=== PATIENT | female | born 1940 | race Two or more races ===

== ENCOUNTER 2017-12-19 08:06 | Emergency (ER) | payer MEDICARE ==
[~2017-12-19] VITALS: Ht 157.5 cm; Wt 91.6 kg
[~2017-12-19 08:06] MED LIST: ASPI81TA27 PO; LEV50T PO; LOSA50TA6 PO
[2017-12-19 08:59] VITALS: BP 167/70
[2017-12-19] MEDS ORDERED: KETOROLAC TROMETH 60MG/2ML VIAL IM ONE (09:15)
== END 2017-12-19 09:54 | disposition home or self-care (01) ==
LOC: ER 08:06
DX: M43.6 Torticollis (principal); R51 Headache; I10 Essential (primary) hypertension; E07.9 Disorder of thyroid, unspecified; R42 Dizziness and giddiness
CPT/HCPCS: 70450; 81002; 96372; 99284; J1885

== ENCOUNTER 2024-03-04 15:19 | Inpatient (IN) | payer MEDICARE, OTHER ==
[~2024-03-04] VITALS: Ht 154.9 cm; Wt 91.0 kg
[~2024-03-04 15:19] MED LIST changes: +ASPI-543 PO; -ASPI81TA27 PO; +LOSA-534 PO; -LOSA50TA6 PO
[2024-03-04 16:49] LABS: Basophils # (auto) 0 10 ^3/uL (0-0.2)
[2024-03-04 16:51] LABS: Basophils % (auto) 0.2 % (0.0-2.0); Eosinophils # (auto) 0.4 10 ^3/uL (0-0.8); Eosinophils % (auto) 3.2 % (0.0-7.0); Lymphocytes # (auto) 1.9 10 ^3/uL (0.4-5.4); Lymphocytes % (auto) 14.5 % (10.0-50.0); Mean Corpuscular Hgb Conc. 34.4 g/dL (32.0-36.0); Mean Corpuscular Volume 104.6 fL (80.0-100.0); Monocytes # (auto) 2.2 10 ^3/uL (0-1.3); Neutrophils # (auto) 8.4 10 ^3/uL (1.6-8.6); Neutrophils % (auto) 65.1 % (37.0-80.0); Nucleated Red Blood Cells % 0.1 %; Red Blood Cells 3.35 10^6/uL (4.0-5.20); Red Cell Distribution Width 14.6 % (11.8-14.3); White Blood Cell 12.9 10^3/uL (4.4-10.8)
[2024-03-04 17:01] LABS: Alanine Aminotransferase 96 U/L (7-40); Albumin 2.4 g/dL (3.2-4.8); Alkaline Phosphatase 252 U/L (46-116); Anion Gap 6 (5-15); Aspartate Aminotransferase 145 U/L (13-40); BUN/Creatinine Ratio 51.8 (10.0-20.0); Blood Urea Nitrogen 71 mg/dL (9-23); Carbon Dioxide 23 mmol/L (20-30); Chloride 102 mmol/L (98-107); Glucose 77 mg/dL (74-106); Sodium 131 mmol/L (136-145)
[2024-03-04 17:02] LABS: Bilirubin, Total 8.3 mg/dL (0.2-1.0); Total Protein 6.5 g/dL (5.7-8.2)
[2024-03-04 18:01] VITALS: PULSE 81; RESP 21; O2SAT 100
[2024-03-04] MEDS: ALBUTEROL SULF 2.5 MG/0.5ML(0.5%) NEB SOLN NEB ONE (18:30)
[2024-03-04] MEDS: ALBUTEROL SULF 2.5 MG/0.5ML(0.5%) NEB SOLN ONE (18:53)
[2024-03-04 19:35] VITALS: PULSE 93; RESP 11; O2SAT 94
[2024-03-04 19:52] LABS: Urine Bacteria FEW /hpf (None Seen); Urine Blood 2+ /uL (Negative); Urine Clarity Clear (Clear); Urine Color Yellow (Yellow); Urine Hyaline Cast FEW /lpf (0 - 2); Urine Protein, UAD Negative (Negative); Urine Specific Gravity 1.011 (1.001-1.035); Urine Urobilinogen 2 mg/dL (Negative); Urine WBC 2 /hpf (0 - 5); Urine pH 5.5 (5.0-9.0)
[2024-03-04] MEDS: SODIUM BICARB 8.4% 50Meq/50ml SYR INJ IV ONE (20:24)
[2024-03-04] MEDS: DEXTROSE (50%) 50ML SYRG IV ONE (20:25)
[2024-03-04] MEDS: CALCIUM CHL 100MG/ML 500 MG in D5W 5% 100 ML IV ONE (20:34)
[2024-03-04] MEDS: SODIUM CHLORIDE 0.9% 1,000 ML IV ONE ×3 (20:39→23:45)
[2024-03-04] MEDS: cefTRIAXone 1GM/50ML D5W 50 ML IV ONE (22:45)
[2024-03-04 23:29] LABS: Lactic Acid w/Reflex 4.2 mmol/L (0.4-2.0)
[2024-03-04 23:35] LABS: COVID19 ANTIGEN SOFIA FIA NEGATIVE (NEGATIVE)
[2024-03-04] MEDS: VANCOMYCIN 1GM/200ML 200 ML IV ONE (23:39)
[2024-03-05] MEDS: DEXTROSE (50%) 50ML SYRG IV ONE (00:54)
[2024-03-05] MEDS: NOREPINEPHRINE 8 MG/250ML KIT 250 ML IV SCH (03:00)
[2024-03-05] MEDS ORDERED: ONDANSETRON HCL 4 MG/2 ML VIAL IV PRN (03:15)
[2024-03-05] MEDS ORDERED: MORPHINE SULFATE INJ 2 MG/ml SYRG IV PRN (03:15)
[2024-03-05] MEDS ORDERED: NITROGLYCERIN 0.4 MG SL TAB SL PRN (03:15)
[2024-03-05 03:28] VITALS: BP 99/31; PULSE 90; RESP 19; TEMP 97.8; O2SAT 94
[2024-03-05] MEDS ORDERED: ALBUTEROL SULF 2.5 MG/0.5ML(0.5%) NEB SOLN NEB PRN (03:30)
[2024-03-05] MEDS: LACTULOSE 20Gm/30ML SOLN PO ONE (03:36)
[2024-03-05] MEDS: ALBUMIN 5% 250 ML IV ONE (03:36)
[2024-03-05] MEDS: AZITHROMYCIN 500MG/ 250ML 250 ML IV SCH (04:29)
[2024-03-05 05:39] LABS: Basophils # (auto) 0 10 ^3/uL (0-0.2); Hemoglobin 11.6 g/dL (12.2-16.2); Lymphocytes # (auto) 1.6 10 ^3/uL (0.4-5.4); Mean Corpuscular Volume 106.1 fL (80.0-100.0); Monocytes # (auto) 2.8 10 ^3/uL (0-1.3); Monocytes % (auto) 16.7 % (0.0-12.0); Red Cell Distribution Width 15.2 % (11.8-14.3)
[2024-03-05 05:45] LABS: Basophils % (auto) 0.3 % (0.0-2.0); Eosinophils # (auto) 0.3 10 ^3/uL (0-0.8); Eosinophils % (auto) 1.6 % (0.0-7.0); Hematocrit 33.5 % (36.0-46.0); Lymphocytes % (auto) 9.6 % (10.0-50.0); Mean Corpuscular Hemoglobin 36.6 pg (28.0-32.0); Mean Corpuscular Hgb Conc. 34.5 g/dL (32.0-36.0); Neutrophils % (auto) 71.8 % (37.0-80.0); Red Blood Cells 3.16 10^6/uL (4.0-5.20); White Blood Cell 16.6 10^3/uL (4.4-10.8)
[2024-03-05 05:53] LABS: Alanine Aminotransferase 84 U/L (7-40); Albumin 2.8 g/dL (3.2-4.8); Alkaline Phosphatase 247 U/L (46-116); Anion Gap 10 (5-15); Aspartate Aminotransferase 110 U/L (13-40); BUN/Creatinine Ratio 31.9 (10.0-20.0); Bilirubin, Total 7.2 mg/dL (0.2-1.0); Blood Urea Nitrogen 46 mg/dL (9-23); Calcium 11.2 mg/dL (8.5-10.1); Carbon Dioxide 21 mmol/L (20-30); Chloride 103 mmol/L (98-107); Glucose 118 mg/dL (74-106); Sodium 134 mmol/L (136-145)
[2024-03-05 06:15] VITALS: O2SAT 98
[2024-03-05 08:25] VITALS: PULSE 74; RESP 17; O2SAT 99
[2024-03-05] MEDS: SODIUM CHLORIDE 0.9% 1,000 ML IV SCH ×2 (11:11→13:45)
[2024-03-05] MEDS: MEROPENEM 1GM IVPB 50 ML IV ONE (11:30)
[2024-03-05] MEDS ORDERED: VANCOMYCIN PER PHARMACY 0 MG IV SCH (11:30)
[2024-03-05 11:51] LABS: Protein, Urine 18.2 mg/dL (0.0-11.9)
[2024-03-05 11:53] LABS: Creatinine, Urine 70.68 mg/dL (30.0-125.0)
[2024-03-05 12:16] LABS: Amphetamine Screen, Urine Neg (NEGATIVE); Barbiturate Scree,Urine Neg (NEGATIVE); Benzodiazephine Screen, Urine Neg (NEGATIVE); Cannabinoid Screen, Urine Neg (NEGATIVE); Cocaine Screen, Urine Neg (NEGATIVE); Opiate Scree,Urine Neg (NEGATIVE); Phencyclidine Screen, Urine Neg (NEGATIVE)
[2024-03-05 12:17] LABS: Base Excess -1.7 mmol/L (-2.0-2.0)
[2024-03-05 12:17] LABS: Magnesium 1.8 mg/dL (1.6-2.6)
[2024-03-05 12:18] LABS: Phosphorus 3.9 mg/dL (2.4-5.1)
[2024-03-05 12:57] LABS: Free T3 2.02 pg/mL (2.3-4.2); Free T4 (Free Thyroxine) 1.23 ng/dL (0.89-1.76)
[2024-03-05] MEDS: OCTREOTIDE ACETATE 100 MCG/ML VL SUBCUT SCH (14:00)
[2024-03-05 14:12] LABS: COVID19 ANTIGEN SOFIA FIA NEGATIVE (NEGATIVE)
[2024-03-05 14:13] LABS: Rapid Influenza A Negative (Negative); Rapid Influenza B Negative (Negative)
[2024-03-05 14:22] LABS: INR 1.35 (0.9-1.15); Partial Thromboplastin Time 28.5 SEC (24.5-34.5)
[2024-03-05 14:29] VITALS: PULSE 80; RESP 20; O2SAT 97
[2024-03-05] MEDS: PANTOPRAZOLE 40 MG/10 ML VIAL INJ IV ONE (14:40)
[2024-03-05] MEDS: ENOXAPARIN SOD 40 MG/0.4 ML SYRINGE SC ONE (14:43)
[2024-03-05 14:59] LABS: Lactic Acid w/Reflex 2.5 mmol/L (0.4-2.0)
[2024-03-05] MEDS: VANCOMYCIN 1GM/200ML 200 ML IV ONE (16:02)
[2024-03-05 19:30] VITALS: PULSE 78; RESP 14; O2SAT 96
[2024-03-05 20:07] VITALS: O2SAT 98
[2024-03-05] MEDS: MEROPENEM 1GM IVPB 50 ML IV SCH (21:00)
[2024-03-05] MEDS ORDERED: cefTRIAXone 1GM/50ML D5W 50 ML IV SCH (21:00)
[2024-03-05] MEDS: LACTULOSE 20Gm/30ML SOLN PO SCH (22:50)
[2024-03-06 03:21] LABS: Basophils # (auto) 0 10 ^3/uL (0-0.2); Basophils % (auto) 0.2 % (0.0-2.0); Eosinophils # (auto) 0.9 10 ^3/uL (0-0.8); Eosinophils % (auto) 4.7 % (0.0-7.0); Hematocrit 32.3 % (36.0-46.0); Hemoglobin 11.1 g/dL (12.2-16.2); Lymphocytes # (auto) 2.7 10 ^3/uL (0.4-5.4); Mean Corpuscular Hemoglobin 36.3 pg (28.0-32.0); Mean Corpuscular Hgb Conc. 34.2 g/dL (32.0-36.0); Mean Corpuscular Volume 106.1 fL (80.0-100.0); Monocytes # (auto) 3.5 10 ^3/uL (0-1.3); Monocytes % (auto) 17.9 % (0.0-12.0); Neutrophils # (auto) 12.2 10 ^3/uL (1.6-8.6); Neutrophils % (auto) 63.2 % (37.0-80.0); Red Blood Cells 3.04 10^6/uL (4.0-5.20); Red Cell Distribution Width 15.1 % (11.8-14.3); White Blood Cell 19.4 10^3/uL (4.4-10.8)
[2024-03-06 03:30] LABS: Alanine Aminotransferase 66 U/L (7-40); Albumin 2.4 g/dL (3.2-4.8); Alkaline Phosphatase 205 U/L (46-116); Anion Gap 4 (5-15); Aspartate Aminotransferase 79 U/L (13-40); BUN/Creatinine Ratio 34.8 (10.0-20.0); Blood Urea Nitrogen 39 mg/dL (9-23); Calcium 10.1 mg/dL (8.7-10.4); Carbon Dioxide 23 mmol/L (20-30); Chloride 108 mmol/L (98-107); Glucose 108 mg/dL (74-106); Magnesium 1.7 mg/dL (1.6-2.6); Sodium 135 mmol/L (136-145)
[2024-03-06 03:31] LABS: Bilirubin, Total 7.5 mg/dL (0.2-1.0); Total Protein 6.2 g/dL (5.7-8.2)
[2024-03-06 03:40] LABS: Potassium 5.6 mmol/L (3.5-5.1)
[2024-03-06 08:30] VITALS: PULSE 81; RESP 13; O2SAT 96
[2024-03-06 09:10] LABS: Hepatitis B Surface Antigen Negative (Negative)
[2024-03-06 09:31] LABS: Hepatitis C Antibody Negative (Negative)
[2024-03-06 10:11] VITALS: PULSE 84; RESP 16; O2SAT 97
[2024-03-06] MEDS: ALBUTEROL SULF 2.5 MG/0.5ML(0.5%) NEB SOLN NEB ONE (10:16)
[2024-03-06] MEDS: ALBUTEROL SULF 2.5 MG/0.5ML(0.5%) NEB SOLN ONE (10:17)
[2024-03-06 10:20] VITALS: PULSE 84; RESP 16; O2SAT 100
[2024-03-06] MEDS: DEXTROSE (50%) 50ML SYRG IV ONE (10:50)
[2024-03-06] MEDS: SODIUM BICARB 8.4% 50Meq/50ml SYR INJ IV ONE (10:51)
[2024-03-06] MEDS: PANTOPRAZOLE 40 MG/10 ML VIAL INJ IV SCH (10:51)
[2024-03-06] MEDS: ENOXAPARIN SOD 40 MG/0.4 ML SYRINGE SC SCH (10:52)
[2024-03-06] MEDS: InsuLIN REG 1unit/0.01ml Soln (100units/ml) IV ONE (10:53)
[2024-03-06] MEDS: VASOPRESSIN 20 UNITS in SODIUM CHL 0.9% 99 ML IV SCH (12:12)
[2024-03-06] MEDS: VANCOMYCIN 1GM/200ML 200 ML IV ONE (13:02)
[2024-03-06] MEDS ORDERED: LEVO100T8 PO (15:08)
[2024-03-06] MEDS ORDERED: CEPH500C PO (15:12)
[2024-03-06] MEDS ORDERED: AZIT500T66 PO (15:12)
[2024-03-06] MEDS ORDERED: SPIR50TA5 PO (15:12)
[2024-03-06] MEDS: FUROSEMIDE 40 MG/4 ML VIAL IV SCH (15:30)
[2024-03-06 18:56] VITALS: O2SAT 97
[2024-03-07] MEDS: NOREPINEPHRINE 8 MG/250ML KIT 250 ML IV ONE (01:37)
[2024-03-07 03:49] LABS: Eosinophils # (auto) 0.9 10 ^3/uL (0-0.8); Hemoglobin 9.9 g/dL (12.2-16.2); Red Blood Cells 2.74 10^6/uL (4.0-5.20)
[2024-03-07 03:50] LABS: Basophils # (auto) 0.1 10 ^3/uL (0-0.2); Basophils % (auto) 0.3 % (0.0-2.0); Hematocrit 29.6 % (36.0-46.0); Lymphocytes # (auto) 2.1 10 ^3/uL (0.4-5.4); Mean Corpuscular Hemoglobin 36.1 pg (28.0-32.0); Mean Corpuscular Hgb Conc. 33.5 g/dL (32.0-36.0); Mean Corpuscular Volume 107.8 fL (80.0-100.0); Monocytes # (auto) 2.7 10 ^3/uL (0-1.3); Monocytes % (auto) 17.2 % (0.0-12.0); Neutrophils % (auto) 63.5 % (37.0-80.0); Red Cell Distribution Width 15.3 % (11.8-14.3); White Blood Cell 15.8 10^3/uL (4.4-10.8)
[2024-03-07 04:10] LABS: Alanine Aminotransferase 53 U/L (7-40); Albumin 2.1 g/dL (3.2-4.8); Alkaline Phosphatase 174 U/L (46-116); Anion Gap 2 (5-15); Aspartate Aminotransferase 60 U/L (13-40); BUN/Creatinine Ratio 39.3 (10.0-20.0); Blood Urea Nitrogen 33 mg/dL (9-23); Calcium 9.2 mg/dL (8.7-10.4); Carbon Dioxide 24 mmol/L (20-30); Chloride 111 mmol/L (98-107); Glucose 135 mg/dL (74-106); Magnesium 1.5 mg/dL (1.6-2.6); Potassium 5.1 mmol/L (3.5-5.1); Sodium 137 mmol/L (136-145)
[2024-03-07 04:11] LABS: Bilirubin, Total 5.3 mg/dL (0.2-1.0); Total Protein 5.4 g/dL (5.7-8.2)
[2024-03-07 07:45] VITALS: PULSE 82; RESP 19; O2SAT 96
[2024-03-07 09:00] VITALS: O2SAT 98
[2024-03-07] MEDS: MAGNESIUM OXIDE 400 MG TAB PO ONE (10:20)
[2024-03-07] MEDS: VANCOMYCIN 1GM/200ML 200 ML IV ONE (15:34)
[2024-03-07 18:20] VITALS: O2SAT 97
[2024-03-07 21:54] VITALS: BP 136/47; PULSE 79; RESP 18; TEMP 97.5; O2SAT 98
== END 2024-03-07 21:59 | disposition short-term general hospital (02) | DRG 871 ==
LOC: ER 15:19 → EDBD 15:19 → TELE 03-05 03:14
PROVIDERS: ADMIT Internal Medicine Pulmonary Disease; ATTEND Internal Medicine Pulmonary Disease
DX: A41.9 Sepsis, unspecified organism (principal); I81 Portal vein thrombosis; J15.69 Pneumonia due to other Gram-negative bacteria; J15.9 Unspecified bacterial pneumonia; J96.01 Acute respiratory failure with hypoxia; R65.21 Severe sepsis with septic shock; K76.7 Hepatorenal syndrome; I13.0 Hypertensive heart and chronic kidney disease with heart failure and stage 1 through stage 4 chronic kidney disease, or unspecified chronic kidney disease; N17.9 Acute kidney failure, unspecified; D68.9 Coagulation defect, unspecified; E87.4 Mixed disorder of acid-base balance; Z20.822 Contact with and (suspected) exposure to COVID-19; I50.9 Heart failure, unspecified; K76.82 Hepatic encephalopathy; N18.9 Chronic kidney disease, unspecified; E87.5 Hyperkalemia; E83.39 Other disorders of phosphorus metabolism; N93.9 Abnormal uterine and vaginal bleeding, unspecified; E83.52 Hypercalcemia; K74.60 Unspecified cirrhosis of liver; E03.9 Hypothyroidism, unspecified; D53.9 Nutritional anemia, unspecified; Z83.3 Family history of diabetes mellitus; Z88.6 Allergy status to analgesic agent; Z82.49 Family history of ischemic heart disease and other diseases of the circulatory system; Z82.3 Family history of stroke
CPT/HCPCS: 36415; 36600; 71045; 76705; 76775; 76856; 80053; 80202; 80307; 81001; 82140; 82306; 82570; 82805; 82962; 83605; 83735; 83880; 84100; 84132; 84156; 84300; 84439; 84443; 84481; 84484; 85025; 85610; 85730; 86703; 86803; 87040; 87081; 87086; 87340; 87426; 87804; 93306; 93971; 94640; 96361; 96365; 96366; 96367; 96375; 99291; C9113; G0378; J1815; J2185; J7060